=== PATIENT | female | born 1945 | race American Indian/Alaskan Native ===

== ENCOUNTER 2019-01-18 16:56 | Observation (INO) | payer BC, MEDICARE, OTHER ==
[2019-01-18 17:15] VITALS: BMI 31.2
--- NOTE | 2019-01-18 17:29 | ED PDOC ---
Arrival/HPI - General Chief Complaint: Weakness/Neurological Deficit Time Seen by Provider: 01/18/19 17:04 Historian: Patient - History of Present Illness Narrative History of Present Illness (Text): 01/18/19 18:52 73yr old female with no past medical history presents today with a numbness/tingling sensation to the left side of the forehead into the left cheek. pt denies fever/chills. no ear pain. no blurred vision. pt denies rash. pt denies numbness, weakness, tingling in the extremities. pt denies dizziness or weakness. no headache. no cp or sob. no n/v/d/c. pt states she is concerned she is having a stroke. pt states symptoms started at 11:45am and havent resolved. Past Medical History - Provider Review Nursing Documentation Reviewed: Yes - Travel History Have you recently traveled outside [place] w/in the past 3 mons?: No - Tetanus Immunization Tetanus Immunization: Up to Date - Past Medical History Past Medical History: No Previous - Cardiac Hx Cardiac Disorders: No - Pulmonary Hx Respiratory Disorders: No - Neurological Hx Neurological Disorder: No - HEENT Hx HEENT Disorder: No - Renal Hx Renal Disorder: No - Endocrine/Metabolic Hx Endocrine Disorders: No - Hematological/Oncological Hx Blood Disorders: No - Integumentary Hx Dermatological Disorder: No - Musculoskeletal/Rheumatological Hx Musculoskeletal Disorders: Yes Hx Osteoporosis: Yes - Gastrointestinal Hx Gastrointestinal Disorders: No - Genitourinary/Gynecological Hx Genitourinary Disorders: No - Psychiatric Hx Psychophysiologic Disorder: No Hx Substance Use: No - Past Surgical History Past Surgical History: No Previous - Suicidal Assessment Feels Threatened In Home Enviroment: No Family/Social History - Physician Review Nursing Documentation Reviewed: Yes Family/Social History: Unknown Family HX Smoking Status: Never Smoked Hx Alcohol Use: No Hx Substance Use: No Hx Substance Use Treatment: No Allergies/Home Meds Allergies/Adverse Reactions: Allergies No Known Allergies Allergy (Verified 01/18/19 16:59) Home Medications: Home Meds Medication Instructions Recorded Confirmed No Known Home Med 01/18/19 01/18/19 Review of Systems - Review of Systems Constitutional: absent: Fatigue, Fevers Eyes: absent: Vision Changes, Photophobia, Eye Pain ENT: absent: Sore Throat, Rhinorrhea, Sinus Congestion Respiratory: absent: SOB, Cough Cardiovascular: absent: Chest Pain, Palpitations Gastrointestinal: absent: Abdominal Pain, Diarrhea, Nausea, Vomiting Genitourinary Female: absent: Dysuria, Frequency, Hematuria Musculoskeletal: absent: Arthralgias, Back Pain, Neck Pain Skin: absent: Rash, Pruritis Neurological: Other (parasthesias to left side of face.). absent: Headache, Dizziness, Gait Changes, Speech Changes, Facial Droop, Disequilibrium Psychiatric: absent: Anxiety, Depression Physical Exam Vital Signs Reviewed: Yes Vital Signs Temp Pulse Resp BP Pulse Ox 01/18/19 17:00 98.5 F 93 H 16 105/56 L 98 Temperature: Afebrile Blood Pressure: Normal Pulse: Regular Respiratory Rate: Normal Appearance: Positive for: Well-Appearing, Non-Toxic, Comfortable Pain Distress: None Mental Status: Positive for: Alert and Oriented X 3 - Systems Exam Head: Present: Atraumatic. No: Tenderness, Contusion, Swelling, Ecchymosis, Abrasion, Laceration Pupils: Present: PERRL Extroacular Muscles: Present: EOMI Conjunctiva: Present: Normal Ears: Present: Normal, NORMAL TM Mouth: Present: Moist Mucous Membranes, Normal Lips, Normal Tounge. No: Drooling, Trismus Pharnyx: Present: Normal. No: ERYTHEMA, EXUDATE, TONSILS ENLARGED, Peritonsilar Swelling, Uvular Deviation, Muffled/Hoarse Voice Nose (External): Present: Atraumatic Nose (Internal): Present: Normal Inspection Neck: Present: Normal Range of Motion, Trachea Midline Respiratory/Chest: Present: Clear to Auscultation, Good Air Exchange. No: Respiratory Distress, Accessory Muscle Use Cardiovascular: Present: Regular Rate and Rhythm, Normal S1, S2. No: Murmurs Abdomen: No: Tenderness, Distention, Rebound, Guarding Back: Present: Normal Inspection Upper Extremity: Present: Normal Inspection, Normal ROM Lower Extremity: Present: Normal Inspection, Normal ROM Neurological: Present: GCS=15, Speech Normal Skin: Present: Warm, Dry, Normal Color. No: Rashes Psychiatric: Present: Alert Medical Decision Making ED Course and Treatment: 01/18/19 17:22 73yr old female with left sided facial numbness, tingling sensation . pt took 2 baby [address] Head; FINDINGS: HEMORRHAGE: No intracranial hemorrhage. BRAIN: Ken-white matter differentiation is preserved. There are small coarse nonspecific calcifications in the right basal ganglia and left parietal lobe. There is no mass, mass effect or abnormal extra-axial fluid collection. There is no territorial infarction. The midline sagittal structures are normal. VENTRICLES: The ventricles are normal in size, shape and configuration. CALVARIUM: There is no calvarial fracture or extracranial soft tissue swelling. PARANASAL SINUSES: Predominantly clear. MASTOID AIR CELLS: Predominantly clear. OTHER FINDINGS: None. IMPRESSION: No acute intracranial abnormality. If there is a persistent focal neurologic deficit and an ongoing clinical concern for acute infarction, an MRI of the brain without intravenous contrast would be a more sensitive modality for evaluation of hyperacute/acute ischemic infarction. Important findings were discussed with YANICK Brock on 01/18/2019 at 5:[address] Vu in depth regarding case; she is requesting CT angio of head and neck. 01/18/19 19:16 labs wnl cxr; wnl cta head/neck; FINDINGS: VASCULATURE: NECK: COMMON CAROTID ARTERIES No significant canal stenosis. No dissection or occlusion. EXTERNAL CAROTID ARTERIES Patent. NECK: INTERNAL CAROTID ARTERIES No stenosis by NASCET criteria. No dissection or occlusion. VERTEBRAL ARTERIES No significant canal stenosis. No dissection or occlusion. HEAD: ANTERIOR CEREBRAL ARTERIES No significant stenosis. No occlusion. No aneurysm. MIDDLE CEREBRAL ARTERIES No significant stenosis. No occlusion. No aneurysm. POSTERIOR CEREBRAL ARTERIES No significant stenosis. No occlusion. No aneurysm. BASILAR ARTERY No significant stenosis. No occlusion. No aneurysm. OTHER: PARANASAL SINUSES: Incidental discovery is made of a 2.1 x 1.4 cm lobulated mucous retention cyst or polyp in the inferolateral left maxillary sinus. The remaining paranasal sinuses appeared satisfactorily developed and aerated. MASTOIDS: The mastoids are satisfactorily and symmetrically pneumatized. SOFT TISSUES No acute finding. BONES No acute osseous abnormality. Mild degenerative arthritis is seen within the atlanto-dens interval. Marginal osteophytic spurring arises from the C5, C6, C7 vertebrae. IMPRESSION: 1. Unremarkable CTA of the head and neck. 2. Incidental note is made of a 2.1 cm mucous retention cyst or polyp in the inferolateral left maxillary sinus. Electronically signed on Jan 18, 2019 7:12:18 PM EST by: Kalin Hernandez M.D., DORIAN Certified By [facility] & [facility] Fellowship Trained MRI and CT Specialist 03/05/19 19:21 pt given 162mg of asa po as patient took 162mg asa earlier today. case discussed with dr. king accepts observational status to tele for TIA impression; tia admit tele obs. - RAD Interpretation Radiology Orders: 01/18/19 17:09 HEAD W/O (CODE STROKE) [CT] Stat CHEST PORTABLE [RAD] Stat - Medication Orders Current Medication Orders: Sodium Chloride (Sodium Chloride 0.9%) 1,000 mls @ 100 mls/hr IV .Q10H [facility] NIHSS Scale ([place]) Time Performed: 17:30 - How Severe is the Stoke Baseline Level of Consciousness: 0=Alert LOC to Questions: 0=Both comments correct LOC to commands: 0=Obeys both correctly Best Gaze: 0=Normal Visual: 0=No visual loss Facial: 0=Normal Motor Arm - Left: 0=No drift Motor Arm - Right: 0=No drift Motor Leg - Left: 0=No drift Motor Leg - Right: 0=No drift Limb Ataxia: 0=Absent Sensory: 1=Mild to moderate loss Best Language: 0=No aphasia Dysarthia: 0=Normal articulation Extinction & Inattention (Neglect): 0=Normal, no object Score: 1 Risk Level: Minor Stroke Risk rTPA Inclusion/Exclusion - Refusal of Treatment Patient Refused Treatment: No - Inclusion Criteria for Altepase Patient is 18 years or Older: Yes The Clinical Diagnosis of Ischemic Stroke That is Causing a Potentially Disabling Neurological Deficit: No Time of Onset is Well Established to be Less Than 270 Minute Before Treatment Would Begin: Yes Risk/Benefit Discussed With Patient/Family Member Present: Yes Disposition/Present on Arrival - Present on Arrival Any Indicators Present on Arrival: No History of DVT/PE: No History of Uncontrolled Diabetes: No Urinary Catheter: No History of Decub. Ulcer: No History Surgical Site Infection Following: None - Disposition Have Diagnosis and Disposition been Completed?: Yes Diagnosis: TIA (transient ischemic attack) Disposition: HOSPITALIZED Disposition Time: 19:20 Patient Plan: Observation Condition: FAIR Referrals: PCP,NO [Primary Care Provider] - Follow up with primary Forms: [employer] ([place])
--- NOTE | 2019-01-18 17:33 | CT ---
Date of service: 01/18/2019 PROCEDURE: CT HEAD WITHOUT CONTRAST. HISTORY: Code Stroke COMPARISON: 04/21/2013. TECHNIQUE: Axial computed tomography images were obtained through the head/brain without intravenous contrast. Radiation dose: Total exam DLP = 810.98 mGy-cm. This CT exam was performed using one or more of the following dose reduction techniques: Automated exposure control, adjustment of the mA and/or kV according to patient size, and/or use of iterative reconstruction technique. FINDINGS: HEMORRHAGE: No intracranial hemorrhage. BRAIN: Ken-white matter differentiation is preserved. There are small coarse nonspecific calcifications in the right basal ganglia and left parietal lobe. There is no mass, mass effect or abnormal extra-axial fluid collection. There is no territorial infarction. The midline sagittal structures are normal. VENTRICLES: The ventricles are normal in size, shape and configuration. CALVARIUM: There is no calvarial fracture or extracranial soft tissue swelling. PARANASAL SINUSES: Predominantly clear. MASTOID AIR CELLS: Predominantly clear. OTHER FINDINGS: None. IMPRESSION: No acute intracranial abnormality. If there is a persistent focal neurologic deficit and an ongoing clinical concern for acute infarction, an MRI of the brain without intravenous contrast would be a more sensitive modality for evaluation of hyperacute/acute ischemic infarction. Important findings were discussed with YANCIK Brock on 01/18/2019 at 5:25
[2019-01-18 17:50] LABS: BASO # 0.02 K/mm3 (0.0-2.0); BASO % 0.5 % (0.0-3.0); EOS # 0.1 (0.0-0.7); EOS % 3.3 % (1.5-5.0); HEMOGLOBIN 11.8 g/dL (12.0-16.0); LYMPH # 1.7 (1.2-3.4); LYMPH % 44.5 % (22.0-35.0); MEAN CELL VOLUME 68.9 fl (80.0-105.0); MEAN CORPUSCULAR HEMOGLOBIN 22.3 pg (25.0-35.0); MEAN CORPUSCULAR HGB CONC 32.3 g/dl (31.0-37.0); MONO # 0.1 (0.1-0.6); MONO % 3.1 % (1.0-6.0); PLATELET COUNT 242 10^3/uL (120.0-450.0); RED CELL DISTRIBUTION WIDTH 15.7 % (11.5-14.5); WHITE BLOOD COUNT 3.9 10^3/uL (4.5-11.0)
[2019-01-18] MEDS ORDERED: Iohexol 350 MG/100 ML VIAL ONE (17:56)
--- NOTE | 2019-01-18 18:00 | RAD ---
Date of service: 01/18/2019 HISTORY: Code Stroke COMPARISON: 04/21/2013. FINDINGS: LUNGS: The lungs are well inflated and clear. PLEURA: No pleural effusions or pneumothorax. CARDIOVASCULAR: There is mild cardiomegaly. No aortic atherosclerotic calcifications present. OSSEOUS STRUCTURES: Within normal limits for the patient's age. VISUALIZED UPPER ABDOMEN: Normal. OTHER FINDINGS: None. IMPRESSION: No active pulmonary disease.
[2019-01-18] MEDS: Sodium Chloride 0.9% 1,000 ML IV SCH (18:03)
[2019-01-18 18:07] LABS: INR 1.07; PARTIAL THROMBOPLASTIN TIME 32.5 Seconds (26.9-38.3); PROTHROMBIN TIME 11.9 SECONDS (9.4-12.5)
[2019-01-18 18:16] LABS: LDL CHOLESTEROL 66 mg/dL (0-129)
[2019-01-18 18:19] LABS: ALB/GLOB RATIO 1.1 (1.1-1.8); ALT/SGPT 25 U/L (7-56); AST/SGOT 33 U/L (14-36); BLOOD UREA NITROGEN 15 mg/dL (7-21); GFR NON-AFRICAN AMERICAN > 60; HDL CHOLESTEROL 41 mg/dL (29-60)
[2019-01-18 18:30] LABS: TROPONIN I < 0.01 ng/mL
--- NOTE | 2019-01-18 21:01 | CARD ---
APPROVED REPORT Date of service: 01/18/2019 EKG Measurement Heart [id number] <Conclusion> Normal sinus rhythm T wave abnormality, consider anterior ischemia Little change since ECG dated 04/21/13 Abnormal ECG
--- NOTE | 2019-01-18 22:31 | CP.PCM.HP ---
<Michele Mullins - Last Filed: 01/19/19 00:38> History of Present Illness - History of Present Illness History of Present Illness: Michele Mullins, PGY1 Medicine H&P for Dr. Harkins cc: "left sided face numbness and tingling" Patient is a 73 y/o F with no significant PMHx who presented to the ED for nu mbness and tingling to the left side of her face. Medical team evaluated patient in the ED. She said she has not had a prior episode of this before. The incident occurred at approximately 11:45 am. When she had numbness/tingling of the left side of her face she took x2 aspirins. Her symptoms have since resolved. She does not have any associated weakness, palpitations, chest pain, headache, dizziness, changes in vision, difficulty with speech, swallowing difficulty, lightheadedness, dizziness, fever, chills, nausea, vomiting, diarrhea. Patient did say that she has had intermittent chest discomfort that is going on for a while, however, she has not had it recently. 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 At this time, patient is offering no complaints. A full 12 point ROS was conducted and unremarkable except as stated above. PMD: Dr. Mueller PMHx: denies PSHx: denies Meds: coenzyme Q10 Allergies: NKDA SocialHx: denies EtOH use, smoking, and recreational drug use. FamHx: father had GI cancer. Present on Admission - Present on Admission Any Indicators Present on Admission: No Review of Systems - Review of Systems All systems: reviewed and no additional remarkable complaints except (as per HPI.) Past Patient History - Tetanus Immunizations Tetanus Immunization: Up to Date - Past Social History Smoking Status: Never Smoked - CARDIAC Hx Cardiac Disorders: No - PULMONARY Hx Respiratory Disorders: No - NEUROLOGICAL Hx Neurological Disorder: No - HEENT Hx HEENT Problems: No - RENAL Hx Chronic Kidney Disease: No - ENDOCRINE/METABOLIC Hx Endocrine Disorders: No - HEMATOLOGICAL/ONCOLOGICAL Hx Blood Disorders: No - INTEGUMENTARY Hx Dermatological Problems: No - MUSCULOSKELETAL/RHEUMATOLOGICAL Hx Musculoskeletal Disorders: Yes Hx Osteoporosis: Yes - GASTROINTESTINAL Hx Gastrointestinal Disorders: No - GENITOURINARY/GYNECOLOGICAL Hx Genitourinary Disorders: No - PSYCHIATRIC Hx Psychophysiologic Disorder: No Hx Substance Use: No - SURGICAL HISTORY Hx Surgeries: No Meds Allergies/Adverse Reactions: Allergies Allergy/AdvReac Type Severity Reaction Status Date / Time No Known Allergies Allergy Verified 01/18/19 16:59 Physical Exam - Constitutional Appears: No Acute Distress - Head Exam Head Exam: ATRAUMATIC, NORMAL INSPECTION, NORMOCEPHALIC - Eye Exam Eye Exam: EOMI, Normal appearance, PERRL Pupil Exam: NORMAL ACCOMODATION - ENT Exam ENT Exam: Mucous Membranes Moist - Neck Exam Neck exam: Positive for: Normal Inspection - Respiratory Exam Respiratory Exam: Clear to Auscultation Bilateral, NORMAL BREATHING PATTERN. absent: Accessory Muscle Use, Chest Wall Tenderness, Rales, Rhonchi, Wheezes - Cardiovascular Exam Cardiovascular Exam: RRR, +S1, +S2 - GI/Abdominal Exam GI & Abdominal Exam: Normal Bowel Sounds, Soft. absent: Distended, Firm, Organomegaly, Rebound, Rigid, Tenderness - Extremities Exam Extremities exam: Positive for: normal capillary refill, normal inspection, pedal pulses present - Back Exam Back exam: NORMAL INSPECTION - Neurological Exam Neurological exam: Alert, CN II-XII Intact, Oriented x3, Reflexes Normal Additional comments: Sensation intact in all distal extremities. Sensation is intact to bilateral face. No focal neurologic deficits. Motor strength is 5/5 in all upper and lower extremities. - Psychiatric Exam Psychiatric exam: Normal Affect, Normal Mood - Skin Skin Exam: Dry, Intact, Normal Color, Warm Results - Vital Signs Recent Vital Signs: Last Vital Signs Temp 98.5 F 01/18/19 17:00 Pulse 82 01/18/19 20:45 Resp 18 01/18/19 20:45 BP 128/71 01/18/19 20:45 Pulse Ox 96 01/18/19 20:45 - Labs Result Diagrams: 01/18/19 17:30 01/18/19 17:30 Labs: Laboratory Results - last 24 hr 01/18/19 01/18/19 01/18/19 17:30 17:30 17:30 WBC 3.9 L RBC 5.30 Hgb 11.8 L Hct 36.5 MCV 68.9 L MCH 22.3 L MCHC 32.3 RDW 15.7 H Plt Count 242 Neut % (Auto) 48.6 L Lymph % (Auto) 44.5 H Fannin % (Auto) 3.1 Eos % (Auto) 3.3 Baso % (Auto) 0.5 Lymph # (Auto) 1.7 Fannin # (Auto) 0.1 Eos # (Auto) 0.1 Baso # (Auto) 0.02 Absolute Neuts (auto) 1.89 PT 11.9 INR 1.07 APTT 32.5 Sodium 140 Potassium 3.9 Chloride 105 Carbon Dioxide 29 Anion Gap 10 BUN 15 Creatinine 0.7 Est GFR ( Amer) > 60 Est GFR (Non-Af Amer) > 60 Random Glucose 83 Calcium 9.0 Total Bilirubin 0.2 AST 33 ALT 25 Alkaline Phosphatase 86 Troponin I < 0.01 Total Protein 7.8 Albumin 4.0 Globulin 3.8 Albumin/Globulin Ratio 1.1 Triglycerides 78 Cholesterol 138 LDL Cholesterol Direct 66 HDL Cholesterol 41 Blood Type Blood Type Confirm Antibody Screen BBK History Checked 01/18/19 01/18/19 17:30 18:05 WBC RBC Hgb Hct MCV MCH MCHC RDW Plt Count Neut % (Auto) Lymph % (Auto) Fannin % (Auto) Eos % (Auto) Baso % (Auto) Lymph # (Auto) Fannin # (Auto) Eos # (Auto) Baso # (Auto) Absolute Neuts (auto) PT INR APTT Sodium Potassium Chloride Carbon Dioxide Anion Gap BUN Creatinine Est GFR ( Amer) Est GFR (Non-Af Amer) Random Glucose Calcium Total Bilirubin AST ALT Alkaline Phosphatase Troponin I Total Protein Albumin Globulin Albumin/Globulin Ratio Triglycerides Cholesterol LDL Cholesterol Direct HDL Cholesterol Blood Type O NEGATIVE Blood Type Confirm O NEGATIVE Antibody Screen Negative BBK History Checked No verified bt Assessment & Plan - Assessment and Plan (Free Text) Assessment: Patient is a 73 y/o F with no significant PMHx who presented to the ED for numbness and tingling to the left side of her face. Patient will be admitted to telemetry for TIA. Plan: TIA - NIHSS 0 - ASA 81mg PO daily - Lipitor 40mg PO qHS - neurochecks q4 - fall precautions - vital signs q4 - echo - passed nursing swallow screen - Regular diet - PT - Neurology is on consult (Dr. Vu) - CT Head: no acute findings - CT Head/Neck: no significant stenosis. Incidential 2.1 cm mucous retention cyst/polyp in the inferolateral left maxillary sinus. Chronic Chest Discomfort - r/o ACS - EKG in the morning - ASA 81mg PO daily - trend troponins q6 - TSH - Lipid panel - Hgb A1c - Cardiology is on consult (Dr. Alan) - CXR: no active cardiopulmonary disease. - EKG in ED: NSR at 77 bpm. Leads V1-V4 T wave inversions. No previous EKG to confirm. Will obtain a repeat EKG. DVT ppx: scd (patient refused heparin sc injections) GI ppx: ptx 40mg PO Diet: Regular Dispo: Admit patient to telemetry. Further recs from neurology and cardiology. Case was discussed and reviewed with Attending Physician, Dr. Harkins. <Carin Harkins - Last Filed: 01/19/19 05:37> Results - Vital Signs Recent Vital Signs: Last Vital Signs Temp 97.8 F 01/18/19 23:21 Pulse 75 01/18/19 23:21 Resp 20 01/18/19 23:21 BP 115/74 01/18/19 23:21 Pulse Ox 99 01/18/19 23:21 - Labs Result Diagrams: 01/18/19 17:30 01/18/19 17:30 Labs: Laboratory Results - last 24 hr 01/18/19 01/18/19 01/18/19 17:08 17:30 17:30 WBC 3.9 L RBC 5.30 Hgb 11.8 L Hct 36.5 MCV 68.9 L MCH 22.3 L MCHC 32.3 RDW 15.7 H Plt Count 242 Neut % (Auto) 48.6 L Lymph % (Auto) 44.5 H Fannin % (Auto) 3.1 Eos % (Auto) 3.3 Baso % (Auto) 0.5 Lymph # (Auto) 1.7 Fannin # (Auto) 0.1 Eos # (Auto) 0.1 Baso # (Auto) 0.02 Absolute Neuts (auto) 1.89 PT 11.9 INR 1.07 APTT 32.5 Sodium Potassium Chloride Carbon Dioxide Anion Gap BUN Creatinine Est GFR ( Amer) Est GFR (Non-Af Amer) POC Glucose (mg/dL) 94 Random Glucose Calcium Total Bilirubin AST ALT Alkaline Phosphatase Troponin I Total Protein Albumin Globulin Albumin/Globulin Ratio Triglycerides Cholesterol LDL Cholesterol Direct HDL Cholesterol Blood Type Blood Type Confirm Antibody Screen BBK History Checked 01/18/19 01/18/19 01/18/19 17:30 17:30 18:05 WBC RBC Hgb Hct MCV MCH MCHC RDW Plt Count Neut % (Auto) Lymph % (Auto) Fannin % (Auto) Eos % (Auto) Baso % (Auto) Lymph # (Auto) Fannin # (Auto) Eos # (Auto) Baso # (Auto) Absolute Neuts (auto) PT INR APTT Sodium 140 Potassium 3.9 Chloride 105 Carbon Dioxide 29 Anion Gap 10 BUN 15 Creatinine 0.7 Est GFR ( Amer) > 60 Est GFR (Non-Af Amer) > 60 POC Glucose (mg/dL) Random Glucose 83 Calcium 9.0 Total Bilirubin 0.2 AST 33 ALT 25 Alkaline Phosphatase 86 Troponin I < 0.01 Total Protein 7.8 Albumin 4.0 Globulin 3.8 Albumin/Globulin Ratio 1.1 Triglycerides 78 Cholesterol 138 LDL Cholesterol Direct 66 HDL Cholesterol 41 Blood Type O NEGATIVE Blood Type Confirm O NEGATIVE Antibody Screen Negative BBK History Checked No verified bt 01/18/19 23:25 WBC RBC Hgb Hct MCV MCH MCHC RDW Plt Count Neut % (Auto) Lymph % (Auto) Fannin % (Auto) Eos % (Auto) Baso % (Auto) Lymph # (Auto) Fannin # (Auto) Eos # (Auto) Baso # (Auto) Absolute Neuts (auto) PT INR APTT Sodium Potassium Chloride Carbon Dioxide Anion Gap BUN Creatinine Est GFR ( Amer) Est GFR (Non-Af Amer) POC Glucose (mg/dL) Random Glucose Calcium Total Bilirubin AST ALT Alkaline Phosphatase Troponin I < 0.01 Total Protein Albumin Globulin Albumin/Globulin Ratio Triglycerides Cholesterol LDL Cholesterol Direct HDL Cholesterol Blood Type Blood Type Confirm Antibody Screen BBK History Checked Attending/Attestation - Attestation I have personally seen and examined this patient.: Yes I have fully participated in the care of the patient.: Yes I have reviewed all pertinent clinical information: Yes Notes (Text): 01/19/19 01:02 As noted,there are some EKG changes,but there is no prior EKG to compare. Patient seen.Chart reviewed. Case discussed with the resident in detail. Agree with documentation,assessment and plan of treatment.
[2019-01-19] MEDS: Sodium Chloride 0.9% 1,000 ML IV SCH (04:18)
[2019-01-19] MEDS ORDERED: Pantoprazole 40 mg EC Tab PO SCH (06:00)
[2019-01-19 06:19] LABS: BASO # 0.02 K/mm3 (0.0-2.0); BASO % 0.5 % (0.0-3.0); EOS # 0.2 (0.0-0.7); EOS % 4.4 % (1.5-5.0); HEMOGLOBIN 11.9 g/dL (12.0-16.0); LYMPH # 1.7 (1.2-3.4); LYMPH % 41.7 % (22.0-35.0); MEAN CELL VOLUME 68.9 fl (80.0-105.0); MEAN CORPUSCULAR HEMOGLOBIN 21.9 pg (25.0-35.0); MEAN CORPUSCULAR HGB CONC 31.8 g/dl (31.0-37.0); MONO # 0.2 (0.1-0.6); MONO % 5.4 % (1.0-6.0); PLATELET COUNT 203 10^3/uL (120.0-450.0); RBC 5.43 10^6/uL (3.5-6.1); RED CELL DISTRIBUTION WIDTH 15.4 % (11.5-14.5); WHITE BLOOD COUNT 4.1 10^3/uL (4.5-11.0)
[2019-01-19 06:35] LABS: ALB/GLOB RATIO 1.1 (1.1-1.8); ALBUMIN 4.1 g/dL (3.0-4.8); ALT/SGPT 32 U/L (7-56); AST/SGOT 35 U/L (14-36); BLOOD UREA NITROGEN 15 mg/dL (7-21); CALCIUM 9.3 mg/dL (8.4-10.5); GFR NON-AFRICAN AMERICAN > 60; HDL CHOLESTEROL 35 mg/dL (29-60)
[2019-01-19 06:45] LABS: LDL CHOLESTEROL 69 mg/dL (0-129); TROPONIN I < 0.01 ng/mL
--- NOTE | 2019-01-19 08:33 | CT ---
Date of service: 01/18/2019 PROCEDURE: CT Angiography of the neck with contrast HISTORY: code stroke; per dr. Vu request COMPARISON: None. TECHNIQUE: Contiguous axial images of the neck were obtained from the level of the skull-base to the superior mediastinum in the arteriographic phase of enhancement. Coronal and sagittal reformats or also generated. IV contrast dose: Radiation dose: Total exam DLP = 535.67 mGy-cm. This CT exam was performed using one or more of the following dose reduction techniques: Automated exposure control, adjustment of the mA and/or kV according to patient size, and/or use of iterative reconstruction technique. FINDINGS: RIGHT CAROTID ARTERIES: Common Carotid Artery: Normal. Carotid Bifurcation: Normal. Internal Carotid Artery:Mild contour abnormality in the proximal left internal carotid with tortuosity. No stenosis External Carotid Artery (proximal branches): Normal. LEFT CAROTID ARTERIES: Common Carotid Artery: Normal. Carotid Bifurcation: Normal. Internal Carotid Artery:Normal. External Carotid Artery (proximal branches): Normal. VERTEBRAL ARTERIES: Right Vertebral Artery: Normal. Left Vertebral Artery: Normal. OTHER FINDINGS: no aortic atherosclerotic calcification or mural plaque present. IMPRESSION: No significant stenosis CT Angiography of the Brain. HISTORY: code stroke; per dr. Vu request COMPARISON: None available. TECHNIQUE: CT angiography of the intracranial arteries was performed. Coronal and sagittal maximum intensity projection reformated images were generated. Radiation dose: Total exam DLP = 535.67 mGy-cm. This CT exam was performed using one or more of the following dose reduction techniques: Automated exposure control, adjustment of the mA and/or kV according to patient size, and/or use of iterative reconstruction technique. FINDINGS: INTERNAL CEREBRAL ARTERIES: Unremarkable. The skull base, petrous, cavernous and supraclinoid segments are bilaterally widely patent. ANTERIOR CEREBRAL ARTERIES: Unremarkable. A1 and A2 segments are widely patent. Smaller distal branches unremarkable, as visualized. MIDDLE CEREBRAL ARTERIES: Unremarkable. M1 and M2 segments are widely patent. Perisylvian branches grossly symmetric. POSTERIOR CIRCULATION: Basilar Artery: Unremarkable. Distal Vertebral Arteries: Unremarkable. Posterior Cerebral Arteries: Unremarkable. Posterior Inferior Cerebellar Arteries: Unremarkable. ANEURYSM/ VASCULAR MALFORMATIONS: None. OTHER FINDINGS: The report concurs with the preliminary [facility] report IMPRESSION: Unremarkable CT Angiography of the Brain.
--- NOTE | 2019-01-19 13:20 | CARD ---
APPROVED REPORT Date of service: 01/19/2019 EKG Measurement Heart [id number] <Conclusion> Normal sinus rhythm T wave abnormality, consider anterior ischemia Abnormal ECG
--- NOTE | 2019-01-19 18:38 | CON ---
DATE: 01/19/2019 REASON FOR CONSULTATION: Followup cardiac evaluation, admitted with left-sided face numbness and tingling sensation, history of recurrent chest pain off and on, abnormal EKG. 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 Denies any chest pain. Denies any shortness of breath. Denies any palpitation now. But, she says that 2 weeks ago, she had some chest pain while she was driving back home. The patient had a stress test 2 years ago and being followed by Dr. Rosemary Johnson. PAST MEDICAL HISTORY: Nothing significant. CURRENT MEDICATIONS: The patient takes Coenzyme Q10 and baby aspirin off and on. FAMILY HISTORY: Nothing significant. SURGICAL HISTORY: No significant history. SOCIAL HISTORY: Denies any smoking. Denies any history of alcohol abuse. 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 REVIEW OF SYSTEMS: As per HPI. PHYSICAL EXAMINATION GENERAL: Height of the patient is 5 feet. Weight of the patient is 160 pounds. Body mass index 32 kg/m2. VITAL SIGNS: Temperature afebrile, heart rate 79 and blood pressure 126/86. HEENT: PERRLA. Extraocular muscles intact. NECK: Supple. No carotid bruit or thyromegaly. CHEST: Clear to auscultation. HEART: S1 and S2, regular. ABDOMEN: Soft. EXTREMITIES: Clubbing and cyanosis negative. LABORATORY DATA: EKG shows normal sinus, T-wave inversion V5, V6. Blood workup: WBC 4.1, hemoglobin 11.9, hematocrit 37.4, and platelet count 203. Chemistry showed sodium 140, potassium 4, chloride 105, carbon dioxide 28, anion gap of 11, BUN 15, creatinine 0.8, troponin 0.01 and TSH 6.04. Lipid profile; triglycerides 90, total cholesterol 140, LDL 69, and HDL 35. IMPRESSION: A 73-year-old female with no significant past medical history, history of stress test 2 years ago, admitted with numbness at the left side of the face. Denies any chest pain now, but 2 weeks ago while the patient was driving, had chest pain, completely resolved. Abnormal EKG. Given the multiple risk factors including obesity, suggest stress test when the acute symptoms of transient ischemia attack diagnosis ruled out. Suggest the patient lipid profile, TSH, hemoglobin A1c as well as we will get echo with a bubble study. Discussed with the patient, we will proceed, further recommendation depend upon hospital course. We will follow with you. Thank you Dr. Benson for providing us the opportunity in taking care of the patient, Neeru Vela. We will start low dose of Synthroid because of elevated level of TSH. For risk stratification, we suggest a stress test, but if any acute TIA problem, we can hold it off and can be done as outpatient with Dr. Rosemary oJhnson if the patient has an appointment, but if the patient is stays here and cleared by Neurology, we can do a stress test tomorrow. Roger Morelos MD
--- NOTE | 2019-01-19 19:13 | MRI ---
Date of service: 01/19/2019 PROCEDURE: MRI BRAIN WITHOUT CONTRAST HISTORY: Code stroke COMPARISON: None available. TECHNIQUE: Multiplanar, multisequence MR images of the brain were obtained without intravenous contrast enhancement. FINDINGS: HEMORRHAGE: Granuloma is reiterated at a posterior left frontal gyrus anterior edge with diminished signal seen in the gradient echo sequence but invisible to essentially all of the sequences. DWI: No evidence of an acute or early subacute infarction. BRAIN PARENCHYMA: Diffuse cerebral atrophy chronic microangiopathy are less than expected for the patient's stated age of 73 years. There is no mass effect. Posterior fossa contents appear unremarkable and there is no suspicious extra-axial collection appreciated. VENTRICLES: Unremarkable. No hydrocephalus. CRANIUM: Unremarkable. ORBITS: Grossly unremarkable. PARANASAL SINUSES/MASTOIDS: Left maxillary sinus polyp or cyst. VASCULAR SYSTEM: Skull base flow voids intact. OTHER FINDINGS: None. IMPRESSION: No acute or subacute brain infarction mass effect or intracranial hemorrhage. Calcified granuloma reiterated left frontal gyrus posteriorly. Marginal age-related degenerative changes, less than expected for patient's stated age.
--- NOTE | 2019-01-19 19:18 | CARD ---
APPROVED REPORT Date of service: 01/19/2019 EXAM: Two-dimensional and M-mode echocardiogram with Doppler and color Doppler. INDICATION CVA/TIA BUBBLE STUDY 2D DIMENSIONS Left Atrium (2D)3.8 (1.6-4.0cm)IVSd1.3 (0.7-1.1cm) LVDd4.5 (3.9-5.9cm)PWd1.1 (0.7-1.1cm) LVDs3.0 (2.5-4.0cm)FS (%) 33.7 % LVEF (%)62.7 (>50%) M-Mode DIMENSIONS Aortic Root2.30 (2.2-3.7cm)Aortic Cusp Exc.1.40 (1.5-2.0cm) Aortic Valve AoV Peak Qdovwgpg437.0cm/Vielka Peak GR.4mmHg Mitral Valve MV E Wrczekok12.7cm/sMV A Uzdimvan61.7cm/sE/A ratio0.9 TDI E/Lateral E'0.0E/Medial E'0.0 Tricuspid Valve TR Peak [id number]/sRAP [id number] Peak Gr.14mmHg [id number] LEFT VENTRICLE The left ventricle is normal size. There is borderline concentric left ventricular hypertrophy. Proximal septal thickening is noted. The left ventricular function is normal.EF-60-65% There is normal LV segmental wall motion. Transmitral Doppler flow pattern is Grade III-reversible restrictive diastolic dysfunction. No left ventricle thrombus noted on this study. There is no ventricular septal defect visualized. There is no left ventricular aneurysm. There is no mass noted in the left ventricle. RIGHT VENTRICLE The right ventricle is normal size. There is normal right ventricular wall thickness. Moderator band noted in RV The right ventricular systolic function is normal. ATRIA The left atrium size is normal. The right atrium size is normal. The interatrial septum is intact with no evidence for an atrial septal defect., By Bubble study and color Flow. AORTIC VALVE The aortic valve is thickened but opens well. No aortic regurgitation is present. There is no aortic valvular stenosis. There is no aortic valvular vegetation. MITRAL VALVE The mitral valve is thickened but opens well. There is no mitral valve regurgitation noted. There is no mitral valve stenosis. There is no evidence of mitral valve prolapse. TRICUSPID VALVE The tricuspid valve leaflets are thickened , but open well. There is trace tricuspid regurgitation.RVSP-24 mmof Hg. There is no tricuspid valve stenosis. There is no tricuspid valve prolapse or vegetation. PULMONIC VALVE The pulmonary valve is normal in structure. There is no pulmonic valvular regurgitation. There is no pulmonic valvular stenosis. GREAT VESSELS The aortic root is normal in size. The ascending aorta is normal in size. The pulmonary artery is normal. The IVC is normal in size and collapses >50% with inspiration. PERICARDIAL EFFUSION There is no pleural effusion. There is a trace pericardial effusion. <Conclusion> Normal chamber Size, EF-60-65% There is trace tricuspid regurgitation.RVSP-24 mmof Hg. There is a trace pericardial effusion. The IVC is normal in size and collapses >50% with inspiration. The interatrial septum is intact with no evidence for an atrial septal defect., By Bubble study and color Flow. No Vegetation or thrombus noted.
--- NOTE | 2019-01-19 23:53 | CP.PCM.CON ---
History of Present Illness - History of Present Illness History of Present Illness: Neurology consult dictated. 73 yr old woman, [place], who presented with acute left sided numbness adn tingling, that persists. Not Tpa candidate. MRI Brain pending. Dr. Vu Neurology Past Patient History - Tetanus Immunizations Tetanus Immunization: Up to Date - Past Social History Smoking Status: Never Smoked - CARDIAC Hx Cardiac Disorders: No - PULMONARY Hx Respiratory Disorders: No - NEUROLOGICAL Hx Neurological Disorder: No - HEENT Hx HEENT Problems: No - RENAL Hx Chronic Kidney Disease: No - ENDOCRINE/METABOLIC Hx Endocrine Disorders: No - HEMATOLOGICAL/ONCOLOGICAL Hx Blood Disorders: No - INTEGUMENTARY Hx Dermatological Problems: No - MUSCULOSKELETAL/RHEUMATOLOGICAL Hx Musculoskeletal Disorders: Yes Hx Osteoporosis: Yes - GASTROINTESTINAL Hx Gastrointestinal Disorders: No - GENITOURINARY/GYNECOLOGICAL Hx Genitourinary Disorders: No - PSYCHIATRIC Hx Psychophysiologic Disorder: No Hx Substance Use: No - SURGICAL HISTORY Hx Surgeries: No Meds Allergies/Adverse Reactions: Allergies Allergy/AdvReac Type Severity Reaction Status Date / Time No Known Allergies Allergy Verified 01/18/19 16:59 - Medications Medications: Current Medications Acetaminophen (Tylenol 325mg Tab) 650 mg PO Q6H PRN PRN Reason: Pain, moderate (4-7) Aspirin (Ecotrin) 81 mg PO DAILY [facility] Last Admin: 01/19/19 10:01 Dose: 81 mg Heparin Sodium (Porcine) (Heparin) 5,000 units SC Q12 [facility]; Protocol Last Admin: 01/19/19 23:10 Dose: Not Given Levothyroxine Sodium (Synthroid) 25 mcg PO 0600 [facility] Results - Vital Signs Recent Vital Signs: Last Vital Signs Temp 98.2 F 01/19/19 17:33 Pulse 95 H 01/19/19 22:00 Resp 18 01/19/19 17:33 BP 116/82 01/19/19 17:33 Pulse Ox 98 01/19/19 06:00 - Labs Result Diagrams: 01/19/19 05:55 01/19/19 05:55 Labs: Laboratory Results - last 24 hr 01/18/19 01/18/19 01/19/19 17:30 23:25 05:55 WBC 4.1 L RBC 5.43 Hgb 11.9 L Hct 37.4 MCV 68.9 L MCH 21.9 L MCHC 31.8 RDW 15.4 H Plt Count 203 Neut % (Auto) 48.0 L Lymph % (Auto) 41.7 H [place] % (Auto) 5.4 Eos % (Auto) 4.4 Baso % (Auto) 0.5 Lymph # (Auto) 1.7 [place] # (Auto) 0.2 Eos # (Auto) 0.2 Baso # (Auto) 0.02 Absolute Neuts (auto) 1.94 Sodium Potassium Chloride Carbon Dioxide Anion Gap BUN Creatinine Est GFR ( Amer) Est GFR (Non-Af Amer) Random Glucose Hemoglobin A1c 6.0 Calcium Phosphorus Magnesium Total Bilirubin AST ALT Alkaline Phosphatase Troponin I < 0.01 Total Protein Albumin Globulin Albumin/Globulin Ratio Triglycerides Cholesterol LDL Cholesterol Direct HDL Cholesterol Free T4 TSH 3rd Generation 01/19/19 01/19/19 01/19/19 05:55 05:55 09:00 WBC RBC Hgb Hct MCV MCH MCHC RDW Plt Count Neut % (Auto) Lymph % (Auto) [place] % (Auto) Eos % (Auto) Baso % (Auto) Lymph # (Auto) [place] # (Auto) Eos # (Auto) Baso # (Auto) Absolute Neuts (auto) Sodium 140 Potassium 4.0 Chloride 105 Carbon Dioxide 28 Anion Gap 11 BUN 15 Creatinine 0.8 Est GFR ( Amer) > 60 Est GFR (Non-Af Amer) > 60 Random Glucose 84 Hemoglobin A1c Calcium 9.3 Phosphorus 4.8 H Magnesium 1.9 Total Bilirubin 0.3 AST 35 ALT 32 Alkaline Phosphatase 92 Troponin I < 0.01 Total Protein 7.8 Albumin 4.1 Globulin 3.8 Albumin/Globulin Ratio 1.1 Triglycerides 90 Cholesterol 140 LDL Cholesterol Direct 69 HDL Cholesterol 35 Free T4 1.31 TSH 3rd Generation 6.04 H
[2019-01-20] MEDS ORDERED: Levothyroxine 25 MCG TAB PO SCH (06:00)
--- NOTE | 2019-01-20 06:29 | CON ---
DATE: 01/19/2019 Neurology consult called by Dr. Willi Benson. HISTORY OF PRESENT ILLNESS: The patient is a 73-year-old female originally from [facility] with no past medical history. Appears quite younger than her stated age. She presented on 01/18/2019 at 18:52 with numbness and tingling sensation to the left side of her to left cheek. There is no dysarthria, no aphasia, no left arm or right weakness. No visual symptoms. REVIEW OF SYSTEMS: Negative for any ear pain, fever, chills, rash, or contacts upon travel recently or headache. At this point, the patient was seen and she says that she only has some numbness and tingling remaining on her face, and she has never had this type of an episode before. 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 PAST MEDICAL HISTORY: None. PAST SURGICAL HISTORY: None. FAMILY HISTORY AND SOCIAL HISTORY: The patient has four children and is originally from [facility], Wallisian speaking. No tobacco. No alcohol. ALLERGIES: NO KNOWN DRUG ALLERGIES. PHYSICAL EXAMINATION: NEUROLOGIC: The patient is alert and oriented x3. Cranial nerves II-XII are normal. External ocular movements are intact. Mini mental status is 30/30. Speech is fluent. There is no aphasia or dysarthria. Motor tone is normal. Strength is normal, 5/5. Sensory: There is no decreased to fine touch or pin in the left face compared to the right nor in any other dermatomes. Cerebellar, [id number] shows no dysmetria. Gait is normal. There is no ataxia. Reflexes are +2 in upper limb and lower limb bilaterally. There is no clonus. VITAL SIGNS: Normal. LABORATORY DATA: Lab work was completely normal including LDL, HDL; however, her TSH was 6.04. CAT scan was done and it was normal. CT of the head was done and it was normal. MRI of the brain was done at 19:45 today and reviewed a granuloma at the posterior left frontal jaw at the anterior edge with diminished signal. There is no acute or subacute brain infarction, but there is a calcified granuloma. A CTA was done as well and that was normal flow. IMPRESSION: This is a 73-year-old woman with left-sided facial numbness and tingling. There with an incidental granuloma found in her brain which is not correlating with the symptoms and she will be followed outpatient with neurosurgical intervention. There was no stroke noted either. PLAN: 1. The patient will be discharged home when medical team agrees. 2. Follow up with Neurosurgery. 3. No further restrictions. Thank you for this interesting consult. Olivia Vu MD
[2019-01-20 06:36] VITALS: O2SAT 98
--- NOTE | 2019-01-20 07:04 | CP.PCM.PN ---
Subjective - Date & Time of Evaluation Date of Evaluation: 01/20/19 Time of Evaluation: 07:04 Objective - Vital Signs/Intake and Output Vital Signs (last 24 hours): Temp Pulse Resp BP Pulse Ox 97.9 F 73 20 112/73 98 01/20/19 06:00 01/20/19 06:00 01/20/19 06:00 01/20/19 06:00 01/20/19 06:00 Intake and Output: 01/20/19 01/20/19 06:59 18:59 Intake Total 1080 Output Total 4 Balance 1076 - Medications Medications: Current Medications Acetaminophen (Tylenol 325mg Tab) 650 mg PO Q6H PRN PRN Reason: Pain, moderate (4-7) Aspirin (Ecotrin) 81 mg PO DAILY [facility] Last Admin: 01/19/19 10:01 Dose: 81 mg Heparin Sodium (Porcine) (Heparin) 5,000 units SC Q12 [facility]; Protocol Last Admin: 01/19/19 23:10 Dose: Not Given Levothyroxine Sodium (Synthroid) 25 mcg PO 0600 [facility] Last Admin: 01/20/19 06:48 Dose: 25 mcg - Labs Labs: 01/19/19 05:55 01/19/19 05:55 PT 11.9 SECONDS (9.4-12.5) 01/18/19 17:30 INR 1.07 01/18/19 17:30 APTT 32.5 Seconds (26.9-38.3) 01/18/19 17:30
[2019-01-20 07:20] LABS: BASO # 0.01 K/mm3 (0.0-2.0); BASO % 0.2 % (0.0-3.0); EOS # 0.2 (0.0-0.7); EOS % 4.9 % (1.5-5.0); HEMOGLOBIN 11.6 g/dL (12.0-16.0); LYMPH # 1.5 (1.2-3.4); LYMPH % 37.7 % (22.0-35.0); MEAN CELL VOLUME 68.6 fl (80.0-105.0); MEAN CORPUSCULAR HEMOGLOBIN 22.1 pg (25.0-35.0); MEAN CORPUSCULAR HGB CONC 32.1 g/dl (31.0-37.0); MONO # 0.2 (0.1-0.6); MONO % 5.1 % (1.0-6.0); PLATELET COUNT 206 10^3/uL (120.0-450.0); RBC 5.26 10^6/uL (3.5-6.1); RED CELL DISTRIBUTION WIDTH 15.1 % (11.5-14.5); WHITE BLOOD COUNT 4.1 10^3/uL (4.5-11.0)
[2019-01-20 07:38] LABS: ALBUMIN 3.8 g/dL (3.0-4.8); ALT/SGPT 20 U/L (7-56); AST/SGOT 48 U/L (14-36); BLOOD UREA NITROGEN 14 mg/dL (7-21); CALCIUM 9.1 mg/dL (8.4-10.5); GFR NON-AFRICAN AMERICAN > 60
--- NOTE | 2019-01-20 09:16 | CP.PCM.PN ---
Subjective - Date & Time of Evaluation Date of Evaluation: 01/20/19 Time of Evaluation: 06:30 - Subjective Subjective: Awake, alert, no distress, ambulating Reason for consultation and follow up: Cardiac evaluation of chest pain off and on, abnormal EKG, admitted with left sided numbness and tingling sensation Seen and examined by me and Dr. Morelos Objective - Vital Signs/Intake and Output Vital Signs (last 24 hours): Temp Pulse Resp BP Pulse Ox 97.9 F 79 20 112/73 98 01/20/19 06:00 01/20/19 06:00 01/20/19 06:00 01/20/19 06:00 01/20/19 06:00 Intake and Output: 01/20/19 01/20/19 06:59 18:59 Intake Total 1080 Output Total 4 Balance 1076 - Medications Medications: Current Medications Acetaminophen (Tylenol 325mg Tab) 650 mg PO Q6H PRN PRN Reason: Pain, moderate (4-7) Aspirin (Ecotrin) 81 mg PO DAILY [facility] Last Admin: 01/20/19 09:01 Dose: 81 mg Heparin Sodium (Porcine) (Heparin) 5,000 units SC Q12 [facility]; Protocol Last Admin: 01/20/19 09:02 Dose: Not Given Levothyroxine Sodium (Synthroid) 25 mcg PO 0600 [facility] Last Admin: 01/20/19 06:48 Dose: 25 mcg - Labs Labs: 01/20/19 07:00 01/20/19 07:00 PT 11.9 SECONDS (9.4-12.5) 01/18/19 17:30 INR 1.07 01/18/19 17:30 APTT 32.5 Seconds (26.9-38.3) 01/18/19 17:30 - Constitutional Appears: Non-toxic, No Acute Distress - Head Exam Head Exam: NORMAL INSPECTION, NORMOCEPHALIC - Eye Exam Eye Exam: Normal appearance - ENT Exam ENT Exam: Mucous Membranes Moist, Normal Exam - Respiratory Exam Respiratory Exam: Decreased Breath Sounds, Clear to Ausculation Bilateral, NORMAL BREATHING PATTERN - Cardiovascular Exam Cardiovascular Exam: REGULAR RHYTHM, +S1, +S2 - GI/Abdominal Exam GI & Abdominal Exam: Soft, Normal Bowel Sounds - Extremities Exam Extremities Exam: Full ROM, Normal Capillary Refill - Neurological Exam Neurological Exam: Alert, Awake, Oriented x3 - Psychiatric Exam Psychiatric exam: Normal Affect, Normal Mood - Skin Skin Exam: Dry, Normal Color, Warm Assessment and Plan - Assessment and Plan (Free Text) Assessment: A 73 year old female who came in to the ER due to numbness and tingling of left side of face. She took 2 Aspirins with resolution. Denies weakness or dizziness. no significant medical history. Take aspirin off and on. Denies chest pain on admission however claimed to have chest pain 2 weeks ago with resolution. claimed to have stress test 2 years ago and follows up with Dr. Rashawn Johnson. Ruled out stroke by Neuro. MRI of brain showed calcified granuloma, no acute or subacute infarct. Echo done and showed LVEF 60-65%, trace TR, RVSP 24 mmHg, trace pericardial effusion,no thrombus or vegetation. For stress test today to rule out ischemia. Cardiac status stable. Plan: For stress test today No distress, ambulating Blood pressure and heart rate stable On ASA 81 mg daily, Synthroid 25 mcg daily,Heparin 5000 units every 12 hours. Continue current treatment Continue current medications Discharge planning Will follow up Plan and treatment discussed with Dr. Morelos
[2019-01-20] MEDS ORDERED: Aminophylline 25 mg/ml Inj ONE (10:35)
[2019-01-20 12:55] VITALS: BP 123/80; RESP 18; TEMP 98.3
--- NOTE | 2019-01-20 17:16 | CP.PCM.DIS ---
<Royce Lopes L - Last Filed: 01/20/19 20:34> Provider - Provider Date of Admission: 01/18/19 19:39 Attending physician: Willi Benson MD Primary care physician: NO PRIMARY CARE PROVIDER Consults: 01/18/19 17:09 Stroke Team Consult Stat Comment: Consulting Provider: Neurohospitalist Consulting Physician: NEUROHOSP Neurohospitalist for Consult: Sean Arvizu Neurohospitalist for Consult: Olivia Vu Reason for Consult: code stroke tingling left side of face 01/18/19 21:04 Cardiology Consult Routine Comment: Consulting Provider: Roger Alan Consulting Physician: Roger Alan Reason for Consult: chest pain 01/18/19 23:20 Inpatient [employer] Core Measures Referral Routine Comment: Physician Instructions: Reason For Exam: eval Transition In Care/Readmission Reduction Routine Comment: Physician Instructions: Reason For Exam: eval Time Spent in preparation of Discharge (in minutes): 35 Diagnosis - Discharge Diagnosis (1) TIA (transient ischemic attack) Status: Resolved (2) Hypothyroidism Status: Acute Hospital Course - Lab Results Lab Results: Most Recent Lab Values WBC 4.1 10^3/uL (4.5-11.0) L 01/20/19 07:00 RBC 5.26 10^6/uL (3.5-6.1) 01/20/19 07:00 Hgb 11.6 g/dL (12.0-16.0) L 01/20/19 07:00 Hct 36.1 % (36.0-48.0) 01/20/19 07:00 MCV 68.6 fl (80.0-105.0) L 01/20/19 07:00 MCH 22.1 pg (25.0-35.0) L 01/20/19 07:00 MCHC 32.1 g/dl (31.0-37.0) 01/20/19 07:00 RDW 15.1 % (11.5-14.5) H 01/20/19 07:00 Plt Count 206 10^3/uL (120.0-450.0) 01/20/19 07:00 Neut % (Auto) 52.1 % (50.0-68.0) 01/20/19 07:00 Lymph % (Auto) 37.7 % (22.0-35.0) H 01/20/19 07:00 Wilkes % (Auto) 5.1 % (1.0-6.0) 01/20/19 07:00 Eos % (Auto) 4.9 % (1.5-5.0) 01/20/19 07:00 Baso % (Auto) 0.2 % (0.0-3.0) 01/20/19 07:00 Lymph # (Auto) 1.5 (1.2-3.4) 01/20/19 07:00 Wilkes # (Auto) 0.2 (0.1-0.6) 01/20/19 07:00 Eos # (Auto) 0.2 (0.0-0.7) 01/20/19 07:00 Baso # (Auto) 0.01 K/mm3 (0.0-2.0) 01/20/19 07:00 Absolute Neuts (auto) 2.12 (1.4-6.5) 01/20/19 07:00 PT 11.9 SECONDS (9.4-12.5) 01/18/19 17:30 INR 1.07 01/18/19 17:30 APTT 32.5 Seconds (26.9-38.3) 01/18/19 17:30 Sodium 138 mmol/L (132-148) 01/20/19 07:00 Potassium 4.7 mmol/L (3.6-5.0) 01/20/19 07:00 Chloride 107 mmol/L (98-107) 01/20/19 07:00 Carbon Dioxide 23 mmol/L (21-33) 01/20/19 07:00 Anion Gap 12 (10-20) 01/20/19 07:00 BUN 14 mg/dL (7-21) 01/20/19 07:00 Creatinine 0.7 mg/dl (0.7-1.2) 01/20/19 07:00 Est GFR ( Amer) > 60 01/20/19 07:00 Est GFR (Non-Af Amer) > 60 01/20/19 07:00 POC Glucose (mg/dL) 94 mg/dL (65-110) 01/18/19 17:08 Random Glucose 66 mg/dL (70-110) L 01/20/19 07:00 Hemoglobin A1c 6.0 % (4.2-6.5) 01/18/19 17:30 Calcium 9.1 mg/dL (8.4-10.5) 01/20/19 07:00 Phosphorus 4.8 mg/dL (2.5-4.5) H 01/19/19 05:55 Magnesium 1.9 mg/dL (1.7-2.2) 01/19/19 05:55 Total Bilirubin 0.6 mg/dL (0.2-1.3) 01/20/19 07:00 AST 48 U/L (14-36) H D 01/20/19 07:00 ALT 20 U/L (7-56) 01/20/19 07:00 Alkaline Phosphatase 79 U/L (38-126) 01/20/19 07:00 Troponin I < 0.01 ng/mL 01/19/19 05:55 Total Protein 7.7 g/dL (5.8-8.3) 01/20/19 07:00 Albumin 3.8 g/dL (3.0-4.8) 01/20/19 07:00 Globulin 3.9 gm/dL 01/20/19 07:00 Albumin/Globulin Ratio 1.0 (1.1-1.8) L 01/20/19 07:00 Triglycerides 90 mg/dL (35-160) 01/19/19 05:55 Cholesterol 140 mg/dL (130-200) 01/19/19 05:55 LDL Cholesterol Direct 69 mg/dL (0-129) 01/19/19 05:55 HDL Cholesterol 35 mg/dL (29-60) 01/19/19 05:55 Free T4 1.31 ng/dL (0.78-2.19) 01/19/19 09:00 TSH 3rd Generation 6.04 mIU/mL (0.46-4.68) H 01/19/19 05:55 Blood Type O NEGATIVE 01/18/19 17:30 Blood Type Confirm O NEGATIVE 01/18/19 18:05 Antibody Screen Negative 01/18/19 17:30 BBK History Checked No verified bt 01/18/19 17:30 - Hospital Course Hospital Course: On admission: Patient is a 73 y/o F with no significant PMHx who presented to the ED for numbness and tingling to the left side of her face. Medical team evaluated patient in the ED. She said she has not had a prior episode of this before. The incident occurred at approximately 11:45 am. When she had numbness/tingling of the left side of her face she took x2 aspirins. Her symptoms have since resolved. She does not have any associated weakness, palpitations, chest pain, headache, dizziness, changes in vision, difficulty with speech, swallowing difficulty, lightheadedness, dizziness, fever, chills, nausea, vomiting, diarrhea. Patient did say that she has had intermittent chest discomfort that is going on for a while, however, she has not had it recently. 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 At this time, patient is offerin g no complaints. During hospital stay: Patient was code stroke in ED. Head CT was done which showed no acute intracranial abnormality. Head/neck CTA shows no significant stenosis. ECHO showed EF 62%, no vegetation or thrombus. Neurology was consulted, recommended MRI. Brain MRI showed no acute or subacute brain infarction mass effect or intracranial hemorrhage. Calcified granuloma reiterated left frontal gyrus posteriorly. Cardiology was also consulted, recommended stress test. Stress test was done. Patient was started on synthroid. Patient was optimized for discharge, and provided script for Synthroid. Discharge Exam - Additional Findings Additional findings: - Constitutional Appears: No Acute Distress - Head Exam Head Exam: ATRAUMATIC, NORMOCEPHALIC - Eye Exam Eye Exam: EOMI, Normal appearance, PERRL - ENT Exam ENT Exam: Mucous Membranes Moist - Neck Exam Neck exam: Positive for: Normal Inspection - Respiratory Exam Respiratory Exam: Clear to Auscultation Bilateral, NORMAL BREATHING PATTERN. absent: Accessory Muscle Use, Chest Wall Tenderness, Rales, Rhonchi, Wheezes - Cardiovascular Exam Cardiovascular Exam: RRR, +S1, +S2 - GI/Abdominal Exam GI & Abdominal Exam: Normal Bowel Sounds, Soft. absent: Distended, Firm, Organomegaly, Rebound, Rigid, Tenderness - Extremities Exam Extremities exam: Positive for: normal capillary refill, normal inspection, pedal pulses present - Neurological Exam Neurological exam: Alert, CN II-XII Intact, Oriented x3 - Psychiatric Exam Psychiatric exam: Normal Affect, Normal Mood - Skin Skin Exam: Dry, Intact, Normal Color, Warm Discharge Plan - Discharge Medications Prescriptions: Levothyroxine [Synthroid] 25 mcg PO 0600 14 Days #14 tab - Follow Up Plan Condition: FAIR Disposition: HOME/ ROUTINE Instructions: Heart Healthy Diet, Stroke (DC), Transient Ischemic Attack (DC), Low Salt Diet Additional Instructions: * Please follow up with your primary medical doctor Dr. Mueller within 3-5 days. * Also follow up with a neurosurgery regarding your diagnosis of granuloma within one week. * Please resume your home medications as prescribed. * Follow up with Dr. Morelos in 1 week for stress test result ( if there's an abnormal result, we will call you as well). Return to ED if symptoms return. Referrals: Roger Morelos MD [Staff Provider] - Daylin Mueller MD [Non-Staff] - PCP,TAMIR [Primary Care Provider] - <Willi Benson - Last Filed: 01/21/19 15:39> Provider - Provider Date of Admission: 01/18/19 19:39 Attending physician: Willi Benson MD Primary care physician: TAMIR PRIMARY CARE PROVIDER Consults: 01/18/19 17:09 Stroke Team Consult Stat Comment: Consulting Provider: Neurohospitalist Consulting Physician: NEUROHOSP Neurohospitalist for Consult: Sean Arvizu Neurohospitalist for Consult: Olivia Vu Reason for Consult: code stroke tingling left side of face 01/18/19 21:04 Cardiology Consult Routine Comment: Consulting Provider: Roger Alan Consulting Physician: Roger Alan Reason for Consult: chest pain 01/18/19 23:20 Inpatient [employer] Core Measures Referral Routine Comment: Physician Instructions: Reason For Exam: eval Transition In Care/Readmission Reduction Routine Comment: Physician Instructions: Reason For Exam: eval Hospital Course - Lab Results Lab Results: Most Recent Lab Values WBC 4.1 10^3/uL (4.5-11.0) L 01/20/19 07:00 RBC 5.26 10^6/uL (3.5-6.1) 01/20/19 07:00 Hgb 11.6 g/dL (12.0-16.0) L 01/20/19 07:00 Hct 36.1 % (36.0-48.0) 01/20/19 07:00 MCV 68.6 fl (80.0-105.0) L 01/20/19 07:00 MCH 22.1 pg (25.0-35.0) L 01/20/19 07:00 MCHC 32.1 g/dl (31.0-37.0) 01/20/19 07:00 RDW 15.1 % (11.5-14.5) H 01/20/19 07:00 Plt Count 206 10^3/uL (120.0-450.0) 01/20/19 07:00 Neut % (Auto) 52.1 % (50.0-68.0) 01/20/19 07:00 Lymph % (Auto) 37.7 % (22.0-35.0) H 01/20/19 07:00 Wilkes % (Auto) 5.1 % (1.0-6.0) 01/20/19 07:00 Eos % (Auto) 4.9 % (1.5-5.0) 01/20/19 07:00 Baso % (Auto) 0.2 % (0.0-3.0) 01/20/19 07:00 Lymph # (Auto) 1.5 (1.2-3.4) 01/20/19 07:00 Wilkes # (Auto) 0.2 (0.1-0.6) 01/20/19 07:00 Eos # (Auto) 0.2 (0.0-0.7) 01/20/19 07:00 Baso # (Auto) 0.01 K/mm3 (0.0-2.0) 01/20/19 07:00 Absolute Neuts (auto) 2.12 (1.4-6.5) 01/20/19 07:00 PT 11.9 SECONDS (9.4-12.5) 01/18/19 17:30 INR 1.07 01/18/19 17:30 APTT 32.5 Seconds (26.9-38.3) 01/18/19 17:30 Sodium 138 mmol/L (132-148) 01/20/19 07:00 Potassium 4.7 mmol/L (3.6-5.0) 01/20/19 07:00 Chloride 107 mmol/L (98-107) 01/20/19 07:00 Carbon Dioxide 23 mmol/L (21-33) 01/20/19 07:00 Anion Gap 12 (10-20) 01/20/19 07:00 BUN 14 mg/dL (7-21) 01/20/19 07:00 Creatinine 0.7 mg/dl (0.7-1.2) 01/20/19 07:00 Est GFR ( Amer) > 60 01/20/19 07:00 Est GFR (Non-Af Amer) > 60 01/20/19 07:00 POC Glucose (mg/dL) 94 mg/dL (65-110) 01/18/19 17:08 Random Glucose 66 mg/dL (70-110) L 01/20/19 07:00 Hemoglobin A1c 6.0 % (4.2-6.5) 01/18/19 17:30 Calcium 9.1 mg/dL (8.4-10.5) 01/20/19 07:00 Phosphorus 4.8 mg/dL (2.5-4.5) H 01/19/19 05:55 Magnesium 1.9 mg/dL (1.7-2.2) 01/19/19 05:55 Total Bilirubin 0.6 mg/dL (0.2-1.3) 01/20/19 07:00 AST 48 U/L (14-36) H D 01/20/19 07:00 ALT 20 U/L (7-56) 01/20/19 07:00 Alkaline Phosphatase 79 U/L (38-126) 01/20/19 07:00 Troponin I < 0.01 ng/mL 01/19/19 05:55 Total Protein 7.7 g/dL (5.8-8.3) 01/20/19 07:00 Albumin 3.8 g/dL (3.0-4.8) 01/20/19 07:00 Globulin 3.9 gm/dL 01/20/19 07:00 Albumin/Globulin Ratio 1.0 (1.1-1.8) L 01/20/19 07:00 Triglycerides 90 mg/dL (35-160) 01/19/19 05:55 Cholesterol 140 mg/dL (130-200) 01/19/19 05:55 LDL Cholesterol Direct 69 mg/dL (0-129) 01/19/19 05:55 HDL Cholesterol 35 mg/dL (29-60) 01/19/19 05:55 Free T4 1.31 ng/dL (0.78-2.19) 01/19/19 09:00 TSH 3rd Generation 6.04 mIU/mL (0.46-4.68) H 01/19/19 05:55 Blood Type O NEGATIVE 01/18/19 17:30 Blood Type Confirm O NEGATIVE 01/18/19 18:05 Antibody Screen Negative 01/18/19 17:30 BBK History Checked No verified bt 01/18/19 17:30 Attending/Attestation - Attestation I have personally seen and examined this patient.: Yes I have fully participated in the care of the patient.: Yes I have reviewed all pertinent clinical information, including history, physical exam and plan: Yes Notes (Text): 01/21/19 14:07 Attending note; Patient seen and examined with resident. And is alert and awake. Denies any chest pain, shortness of breath. Denies any abdominal pain, nausea, vomiting. Denies any numbness. Denies any weakness Tolerating diet well. Ambulating without any difficulty. Patient is a 73 old female with no significant PMHx who presented to the ED for numbness and tingling to the left side of her face. Medical team evaluated patient in the ED. 1. Numbness in the left side of the face; currently resolved. CT head is negative. MRI is negative for any acute stroke. Incidental granuloma noted. neurology evaluation appreciated. 2. chest pain; cardiac enzymes negative. EKG shows nonspecific ST-T changes. Cardiac evaluation appreciated. Patient will go for stress test today. continue Aspirin. 3. Hypothyroidism; continue Synthroid. Patient will be discharged home after stress test today. Follow-up with cardiology Dr. Morelos as outpatient. Addendum; Stress test showed small reversible anterior and apical defect suspects ischemia. Case discussed with cardiology in detail. Cardiac catheterization planned for next week. 01/21/19 15:38
[2019-01-20 17:21] VITALS: PULSE 81
--- NOTE | 2019-01-20 21:34 | CARD ---
APPROVED REPORT Date of service: 01/20/2019 Protocol: LEXISCAN Test Type: Lexiscan Sestamibi Stress Test Attending Physician: Dr. Roger Alan Referring Physician: Dr. Willi Benson Test Indications: Chest Pain Height:5 ft 0 in Weight:160lbs Medications: Tylenol, Aspirin, Heparin, Synthroid Protonix Medical History: 73 year old female with ahistory of chest pain, osteoporosis Target HR: 149 bpm Resting ECG: RSR. Resting Heart Rate: 80 bpm Resting Blood Pressure: 120/80mmHg Submaximum (85%): 127 bpm PROCEDURE Pharmacologic stress testing was performed using 0.4mg per 5ml of regadenoson given intravenously over 7-10 seconds. Reversal agent aminophyline 100 mg, given intravenously for Headache.Dyspnea. POST EXERCISE Reason for Termination: Protocol completed Target HR: No Max HR: 77 bpm 75% of Maximum Predicted HR: 149 bpm Exercise duration: 00:31 min:sec, 0 Stage Exercise capacity: 1.0METs Max Blood Pressure: 120/80mmHg Blood Pressure response to exercise: normal resting BP - appropriate response Heart Rate response to exercise: appropriate Chest Pain: Yes, Heavyness in Chest. Angina index: 0 Arrhythmia: No, none ST Change: No, none Deviation: 0 mm TEST SUMMARY [id number]/80.0. INFUSIONDOSE 100:[id number]/.0. [id number]/60.0. INTERPRETATION Stress EKG Conclusion: IV LEXISCAN NUCLEAR STRESS TEST DURING WHICH PATIENT FELT HEAVYNESS IN CHEST BUT NO ST-T CHANGES. NUCLEAR SCAN REPORT PENDING. Signed by Roger Alan Electronically Approved: 01/20/2019 13:48:46 EXAM: Myocardial Perfusion STRESS/REST Stress Test Type: Pharmacologic Imaging Protocol The imaging protocol used to acquire images was Rest Tc-99m/stress Tc-99m 1 dayStress Tc-99m/rest Tc-99m 1 day Rest Spect myocardial perfusion imaging was performed in supine position 55 minutes following the injection of 30.3 mCi of Tc-99 Myoview. At peak stress, the patient was injected intravenously with 10.9mCi of Tc-99 tetrofosmin after an infusion time of 0 minutes and 10 seconds. Gated Stress Spect was performed 70 minutes after intravenous Tc-99 Myoview injection. The images were gated to evaluate regional wall motion and calculate ventricular ejection fraction.Images were reconstructed using backfilter projection method in short horizontal and verticle long axis. Spect slices were generated. LV Perfusion The quality of the study is good. The left ventricle is normal in size. The right ventricle is prominent. The lung uptake is normal. The distribution of tracer reveals an area of mildly decreased perfusion involving distal anterior/ apical wall on the stress study. The remainder of the LV myocardium is unremarkable. The rest myocardial perfusion study shows improvement of distal anterior /apical defect. Wall Motion Gated wall motion study shows normal contractility of hte left ventricle. LVEF = 69%. Conclusion 1. Probably abnormal SPECT myocardial perfusion study. 2. Reverislble, small, distal anterior/ apical defect is suscpicious of ischemia. 3. Normal gated wall motion of the left ventricle.
--- NOTE | 2019-01-21 20:21 | PN ---
DATE: 01/21/2019 SUBJECTIVE: Patient underwent a stress thallium and Lexiscan, which showed abnormality as follows; probably abnormal myocardial perfusion study, reversible small anterior defect, suspicion for ischemia, ejection fraction of 69%. So, I called the patient this morning at telephone number [phone]. Explained to the patient stress test result and advised for cardiac catheterization. Patient agreed. 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 Patient agreed for cardiac catheterization, so patient is scheduled for cardiac catheterization on 01/31/2019 at 08:30 a.m. Further recommendations will be made after the cardiac catheterization. We will follow with you. Thank you Dr. Benson for providing us the opportunity in taking care of the patient, Neeru Vela. Roger Morelos MD
== END 2019-01-20 18:06 | disposition home or self-care (01) ==
LOC: ED 16:56 → ERH 19:39 → 2RNO 21:45
PROVIDERS: ADMIT Internal Medicine; ATTEND Internal Medicine
DX: G45.9 Transient cerebral ischemic attack, unspecified (principal); E03.9 Hypothyroidism, unspecified; M81.0 Age-related osteoporosis without current pathological fracture
CPT/HCPCS: 36415; 70450; 70496; 70498; 70551; 71045; 78452; 80053; 80061; 82948; 83036; 83735; 84100; 84439; 84443; 84484; 85025; 85610; 85730; 86850; 86900; 93005; 93017; 93306; 97161; 97530; 99285; A9502; G0378; G8978; G8979; G8980; J0280; J2785; J7030; Q9967